=== PATIENT | male | born 1960 | race Caucasian/White ===

== ENCOUNTER 2020-04-01 12:19 | Outpatient (CLI) | payer MEDICAID | END 2020-04-01 12:20 | disposition home or self-care (01) | LOC: COV 12:19 | PROVIDERS: ATTEND Family Medicine | DX: R53.83 Other fatigue (principal); R09.81 Nasal congestion; J34.89 Other specified disorders of nose and nasal sinuses; Z20.828 Contact with and (suspected) exposure to other viral communicable diseases ==

== ENCOUNTER 2021-04-22 17:15 | Outpatient (CLI) | payer MEDICAID ==
--- NOTE | 2021-04-23 09:07 | XRAY Report ---
PROCEDURE: Thoracic Spine 2 View INDICATIONS: THORACIC BACK PAIN TECHNIQUE: 3 views of the thoracic spine were acquired. COMPARISON: None. FINDINGS: Bones: No visible acute fractures or dislocations. There is slight, chronic appearing anterior vert ebral body height loss of T8. Anterior and lateral bridging osteophytes are present in the lower thor acic spine. Disc spaces are well-maintained. No suspicious bony lesions. 12 pairs of ribs are noted, and appear intact where visualized. Soft tissues: No paravertebral stripe thickening. IMPRESSION: 1. No visible acute fracture. 2. Degenerative vertebral body height loss of T8 and other signs of degeneration in the lower thoraci c spine. 3. If there is continued concern for fracture, MR imaging to detect osseous edema is recommended. Reviewed by: Nelsy Howell MD on 04/23/2021 9:06 AM PST Approved by: Nelsy Howell MD on 04/23/2021 9:06 AM PST Station ID: [id number]
== END 2021-04-22 17:16 | disposition home or self-care (01) ==
LOC: DI 17:15
PROVIDERS: ATTEND Acupuncturist
DX: M54.6 Pain in thoracic spine (principal); M47.814 Spondylosis without myelopathy or radiculopathy, thoracic region